=== PATIENT | female | born 1980 | race American Indian/Alaskan Native ===

== ENCOUNTER 2020-12-25 17:08 | Emergency (ER) | payer SELFPAY ==
[2020-12-25 19:39] VITALS: BP 130/86
[2020-12-25 21:25] LABS: Bilirubin,Urine NEG (Negative); Blood,Urine NEG (Negative); Color,Urine Yellow (Yellow); Mucus,Urine FEW /HPF; Protein,Urine <15 mg/dL mg/dL (Negative); Urobilinogen,Urine < 2.0 mg/dL (<2.0)
[2020-12-25 21:26] LABS: HCG Qualitative,Urine Negative (Negative)
--- NOTE | 2020-12-26 00:47 | Emergency Department Report ---
ED Female HPI - General Chief complaint: Abdominal Pain Stated complaint: VAG BLEEDING/ABD PAIN Source: patient Mode of arrival: Ambulatory Limitations: No Limitations - History of Present Illness Initial comments: Patient is a A1 40-year-old -Thai female with no past medical history presents to the ED with complaint of acute onset persistent left breast pain, urinary frequency and urgency, yellowish-white vaginal discharge with fishy smell for the last 1 week, worse in the last 2 days. Patient states that she has been having unprotected sexual intercourse with a new sexual partner of 4 months. Patient states that she suspects she may be although she has not had any home test performed. Patient denies dysuria, urinary frequency and urgency, chest pain, shortness of breath, hematuria, fever, chills, vaginal bleeding, low back pain, chest pain, shortness of breath, abdominal pain, nausea and vomiting or diarrhea and dyspareunia. MD Complaint: vaginal discharge, other (left breast pain; suspects she may be ) -: Sudden, week(s) Location: other (vaginal) Severity: moderate Severity scale (0 -10): 3 Quality: sharp, aching Consistency: constant Improves with: none Worsens with: none Are you Now?: No Associated Symptoms: vaginal discharge, loss of appetite - Related Data Sexually active: Yes : 4 Para: 3 A: 1 Previous Rx's Medication Instructions Recorded Last Taken Type Fluconazole [Diflucan TAB] 200 mg PO QDAY #1 tablet 12/26/20 Unknown Rx metroNIDAZOLE [Flagyl] 500 mg PO Q12HR #14 tab 12/26/20 Unknown Rx Allergies Allergy/AdvReac Type Severity Reaction Status Date / Time latex Allergy Itching Verified 12/25/20 19:28 Blue Xray Dye Allergy Shortness Uncoded 12/25/20 19:28 of Breath ED Review of Systems ROS: Stated complaint: VAG BLEEDING/ABD PAIN Other details as noted in HPI Constitutional: denies: chills, fever Eyes: denies: eye pain, eye discharge, vision change ENT: denies: ear pain, throat pain Respiratory: denies: cough, shortness of breath, wheezing Cardiovascular: denies: chest pain, palpitations Endocrine: no symptoms reported Gastrointestinal: denies: abdominal pain, nausea, diarrhea Genitourinary: urgency, frequency, discharge. denies: dysuria Musculoskeletal: denies: back pain, joint swelling, arthralgia Skin: denies: rash, lesions Neurological: denies: headache, weakness, paresthesias Psychiatric: denies: anxiety, depression Hematological/Lymphatic: denies: easy bleeding, easy bruising ED Past Medical Hx - Surgical History Past Surgical History?: Yes Hx Cholecystectomy: Yes - Medications Home Medications: Home Medications Medication Instructions Recorded Confirmed Last Taken Type Fluconazole [Diflucan TAB] 200 mg PO QDAY #1 tablet 12/26/20 Unknown Rx metroNIDAZOLE [Flagyl] 500 mg PO Q12HR #14 tab 12/26/20 Unknown Rx ED Physical Exam - General Limitations: No Limitations General appearance: alert, in no apparent distress - Head Head exam: Present: atraumatic, normocephalic, normal inspection - Eye Eye exam: Present: normal appearance, PERRL, EOMI Pupils: Present: normal accommodation - ENT ENT exam: Present: normal exam, normal orophraynx, mucous membranes moist, TM's normal bilaterally, normal external ear exam - Neck Neck exam: Present: normal inspection, full ROM - Respiratory Respiratory exam: Present: normal lung sounds bilaterally. Absent: respiratory distress, wheezes, rales, rhonchi, chest wall tenderness, accessory muscle use, decreased breath sounds, other - Cardiovascular Cardiovascular Exam: Present: regular rate, normal rhythm, normal heart sounds. Absent: systolic murmur, diastolic murmur, rubs, gallop - GI/Abdominal GI/Abdominal exam: Present: soft, normal bowel sounds. Absent: tenderness, guarding, rebound, hyperactive bowel sounds, hypoactive bowel sounds, organomegaly, mass - Bi-manual exam: Present: other (Pelvic exam deferred, patient choice) - Extremities Exam Extremities exam: Present: normal inspection, full ROM, normal capillary refill. Absent: tenderness, pedal edema, joint swelling, calf tenderness - Back Exam Back exam: Present: normal inspection, full ROM. Absent: tenderness, CVA tenderness (R), muscle spasm, paraspinal tenderness, vertebral tenderness - Neurological Exam Neurological exam: Present: alert, oriented X3, CN II-XII intact, normal gait, reflexes normal - Psychiatric Psychiatric exam: Present: normal affect, normal mood - Skin Skin exam: Present: warm, dry, intact, normal color. Absent: rash ED Course Vital Signs 12/25/20 19:38 Temperature 99.2 F Pulse Rate 89 Respiratory 20 Rate Blood Pressure 130/86 [Left] O2 Sat by Pulse 100 Oximetry ED Medical Decision Making - Medical Decision Making This is a A1 40-year-old -Thai female with no past medical history presents to the ED with complaint of acute onset persistent left breast pain, urinary frequency and urgency, yellowish-white vaginal discharge with fishy smell for the last 1 week, worse in the last 2 days. Patient states that she has been having unprotected sexual intercourse with a new sexual partner of 4 months. Patient states that she suspects she may be although she has not had any home test performed. In the ED, patient is alert and oriented x3 and is not in any distress with normal vital signs. Urinalysis unremarkable. Based on the history, the patient was empirically discharged home on antibiotics for suspected bacterial vaginosis, and was advised to follow-up with [facility] physician or primary care physician in 7 to 10 days for reevaluation. Patient was advised return to the ED immediately if symptoms get worse. - Differential Diagnosis Bacterial vaginosis; UTI; ; Roxie vaginitis Critical care attestation.: If time is entered above; I have spent that time in minutes in the direct care of this critically ill patient, excluding procedure time. ED Disposition Clinical Impression: Bacterial vaginosis, Vaginal discharge Disposition: TO HOME OR SELFCARE Is pt being admited?: No Does the pt Need Aspirin: No Condition: Stable Instructions: Abdominal Pain (ED), Bacterial Vaginosis (ED), Bacterial Vaginosis, [id number] Additional Instructions: Take medication with food, drink plenty of fluids and follow-up with your primary care physician in 5 to 7 days for reevaluation. Return to the ED immediately if symptoms get worse. Prescriptions: Fluconazole [Diflucan TAB] 200 mg PO QDAY #1 tablet metroNIDAZOLE [Flagyl] 500 mg PO Q12HR #14 tab Referrals: [facility] [Provider Group] - 3-5 Days Forms: STI Treatment and Prevention Time of Disposition: 00:49 Print Language: VIETNAM[place]
== END 2020-12-26 01:11 | disposition home or self-care (01) ==
LOC: ED 17:08
DX: N76.0 Acute vaginitis (principal)
CPT/HCPCS: 81001; 81025; 99283